=== PATIENT | female | born 1950 | race Caucasian/White ===

== ENCOUNTER 2024-06-09 19:41 | Observation (INO) | payer OTHER, SELFPAY ==
[2024-06-09 19:56] VITALS: BP 144/66; PULSE 72; RESP 18; TEMP 37.7; O2SAT 100; BMI 25.8
--- NOTE | 2024-06-09 20:54 | CRLHL7_ITS ---
For Patients: As a result of the Century Cures Act, medical imaging exams and procedure reports are released immediately into your electronic medical record. You may view this report before your referring provider. If you have questions, please contact your health care provider. INDICATION: Epigastric abdominal pain. TECHNIQUE: CT abdomen and pelvis acquired with 83 cc Omnipaque 370 IV contrast. COMPARISON: None. FINDINGS: Lower chest: Left lower lobe calcified granulomas. Bibasilar atelectasis/scarring. Liver: Right hepatic lobe cyst measuring 3.6 cm. Gallbladder and bile ducts: Cholecystectomy. Mild intrahepatic biliary dilatation in addition to prominence of the common bile duct which demonstrates mild wall enhancement. No radiopaque stones appreciated. Pancreas: Mild peripancreatic fat stranding along the pancreatic head. No peripancreatic fluid collection. No pancreatic ductal dilatation. Spleen: Unremarkable. Adrenal glands: Unremarkable. Kidneys: Left parapelvic cysts. No hydronephrosis or hydroureter. No obstructing urinary calculi. GI tract: No bowel obstruction. No suspicious bowel wall thickening. Moderate colonic stool burden. No CT evidence of acute appendicitis. Vasculature: No abdominal aortic aneurysm. Grossly patent vasculature. Lymph nodes: No suspicious lymphadenopathy. Peritoneum/Abdominal Wall: No ascites or pneumoperitoneum. No acute abdominal wall abnormality. Pelvis: Normal bladder. No suspicious adnexal mass. Bones: No acute abnormality. Nonspecific right iliac sclerotic lesion measuring 0.6 cm. IMPRESSION: 1. Mild peripancreatic fat stranding along the pancreatic head may reflect sequelae of pancreatitis. No peripancreatic fluid collection. 2. Mild common bile duct wall enhancement with mild intrahepatic biliary ductal dilatation, nonspecific, may reflect sequelae of ascending biliary tract infection in the appropriate clinical context. No radiopaque stones appreciated. 3. Nonspecific subcentimeter right iliac sclerotic lesion may reflect a bone island. Comparison with prior imaging recommended, if available, to assess for interval change. Otherwise, follow up examination could be pursued in 1 year to assess for stability. Please note that all CT scans at this facility use dose modulation, iterative reconstruction, and/or weight-based dosing when appropriate to reduce radiation dose to as low as reasonably achievable. Dictated by Mayito Morris MD @ 06/09/2024 10:37:05 PM (Electronically Signed)
--- NOTE | 2024-06-09 21:00 | ED_ITS ---
HPI - Abdominal Pain General Date Seen: 06/09/24 Chief Complaint: Abdominal Pain Stated Complaint: Tightness in abdomen/back Time Seen by Provider: 06/09/24 20:50 Source: patient Mode of arrival: ambulatory Limitations: no limitations History of Present Illness HPI narrative: patient is a 74-year-old female presenting to the emergency department for epigastric pain. She states the pain started yesterday feels like a band around her abdomen squeezing her. She denies having symptoms like this before. Symptoms persisted into today so she came to be evaluated. has not been eating or drinking much because she states it makes the pain worse. States the pain radiated to her back. Has had previous hysterectomy, appendectomy, cholecystectomy. Had a bowel movement yesterday and is normal for her to go 1-2 days without a bowel movement. She states it was normal. Has never had a bowel obstruction before. She has not noticed any abdominal distention. Has never had issues with pancreatitis before she states. No history of alcohol drinking. No known liver disease. Not aware of any sick contacts. Has had some nausea but no vomiting. Has not had any dysuria or diarrhea. Denies chest pain, shortness of breath, headaches, dizziness, weakness, numbness. Related Data Home Medications ?Medication ?Instructions ?Recorded ?Confirmed aspirin 81 mg capsule 81 mg PO DAILY 06/09/24 06/09/24 atorvastatin 10 mg tablet 10 mg PO DAILY 06/09/24 06/09/24 lisinopril 20 1 tab PO DAILY 06/09/24 06/09/24 mg-hydrochlorothiazide 12.5 mg tablet psyllium husk 0.4 gram capsule 0.4 g PO DAILY 06/09/24 06/09/24 (Daily Fiber) Allergies Allergy/AdvReac Type Severity Reaction Status Date / Time latex Allergy Severe Verified 06/09/24 22:18 Penicillins Allergy Severe Verified 06/09/24 22:18 Review of Systems Status of ROS Reports: 10 or more systems reviewed and unremarkable except as noted in History and below [facility] Social History Smoking Status: Former smoker Do you use any of these nicotine containing products: None How often do you have a drink containing alcohol: never AUDIT-C Alcohol total score: 0 Non-prescribed substance use: denies use Exam Narrative: Exam Narrative: Const: Well-nourished, Well-developed, in mild distress Eyes: PERRL, no conjunctival injection, and symmetrical lids HENT: Atraumatic external nose and ears. Moist mucous membranes. Neck: Symmetric, trachea midline, No thyromegaly. CVS: RRR, No murmurs or gallops. Peripheral pulses 2+ and equal in all extremities RESP: Unlabored respiratory effort. Clear to auscultation bilaterally. GI: mild epigastric tenderness,Nondistended, No rebound or guarding. MSK:Extremities w/o deformity, Normal Active ROM Skin: Warm, Dry. No rashes or lesions. Neuro: Normal Muscle tone, No focal neurological deficits. Psych: Awake, Alert, & Oriented x3. Appropriate mood and affect. Const: Vital Signs, click to edit/add: Vital Signs - 24 hr 06/09/24 19:56 06/09/24 21:15 06/09/24 22:40 Temperature 99.9 F H 97.7 F Pulse Rate [Right Pulse Oximeter] 72 67 69 Respiratory Rate 18 16 16 Blood Pressure [Ri t Upper Arm] 144/66 H 149/76 H 136/55 L Pulse Oximetry 100 94 99 Oxygen Delivery Me thod Room Air Room Air Room Air Course Vital Signs Vital signs: Initial Vital Signs Temperature 99.9 F H 06/09/24 19:56 Temperature Source Temporal Artery Scan 06/09/24 19:56 Pulse Rate 72 06/09/24 19:56 Pulse Rhythm Regular 06/09/24 19:56 Pulse Strength 3+ Normal 06/09/24 19:56 Respiratory Rate 18 06/09/24 19:56 Blood Pressure 144/66 H 06/09/24 19:56 Blood Pressure Mean 92 06/09/24 19:56 Blood Pressure Position Sitting 06/09/24 19:56 Pulse Oximetry 100 06/09/24 19:56 Oxygen Delivery Method Room Air 06/09/24 19:56 Vital Signs Temperature 99.9 F H 06/09/24 19:56 Pulse Rate 72 06/09/24 19:56 Respiratory Rate 18 06/09/24 19:56 Blood Pressure 144/66 H 06/09/24 19:56 Pulse Oximetry 100 06/09/24 19:56 Oxygen Delivery Method Room Air 06/09/24 19:56 Temperature 97.7 F 06/09/24 22:40 Pulse Rate 69 06/09/24 22:40 Respiratory Rate 16 06/09/24 22:40 Blood Pressure 136/55 L 06/09/24 22:40 Pulse Oximetry 99 06/09/24 22:40 Oxygen Delivery Method Room Air 06/09/24 22:40 Medications Administered Medications: Discontinued Medications Generic Name Dose Route Start Last Admin Trade Name Beatris PRN Reason Stop Dose Admin Morphine Sulfate 4 mg 06/09/24 20:54 06/09/24 21:16 Morphine 4 Mg/Ml Inj IVP 06/09/24 20:55 4 mg ONCE ONE Administration MDM - Abdominal Pain MDM Narrative Medical decision making narrative: Patient is a 74-year-old female presenting to the emergency department for abdominal pain. Differential at this time includes small-bowel obstruction, pancreatitis, gastroenteritis, liver disease. Unlikely to be stump appendicitis or diverticulitis based on the location. She is otherwise stable and I do not notice a pulsatile mass. AAA rupture seems unlikely at this time. This could be an uncommon presentation of ACS so will order an EKG and troponin. Morphine given for pain. Is not requesting anything for nausea at this time. Will order a CT scan of IV contrast of the abdomen and pelvis, BMP, CBC, lipase, COVID/flu / RSV, urinalysis. morphine given for pain patient's lab work returned showing no concerning abnormalities. Lipase within normal limits. AST and ALT are very mildly elevated. Bilirubin within normal limits. Urinalysis shows no signs of a UTI. EKG and troponin shows no acute concerning abnormalities considering length of symptoms I do not believe repeat troponin is necessary. CT scan of the abdomen pelvis shows Some mild peripancreatic fat stranding that could be consistent with pancreatitis. Also show some mild common bile duct walk can spend a mild intrahepatic biliary duct dilation. This duct dilation can be seen post cholecystectomy which she has had. She is showing no obvious signs of infection and has non concerning LFTs at this time. Despite the normal lipase she does have clinical symptoms consistent with pancreatitis along with CT evidence of pancreatitis. Do this I do feel comfortable diagnoses her pancreatitis. I will spoke to her about admission under observation versus discharge. I explained management both ways at this time she prefers admission. I spoke to the hospitalist, Dr. Matthew, who accepted her for admission. I asked him if he would want a ultrasound of the right upper quadrant prior to admission but he is comfortable without this being performed at this time Lab Data Labs: Lab Results 06/09/24 06/09/24 06/09/24 Range/Units 20:55 21:07 21:18 WBC 10.70 (4.50-11.00) K/uL RBC 4.50 (4.00-5.20) m/uL Hgb 13.8 (12.0-16.0) gm/dL Hct 40.7 (33.0-51.0) % MCV 90 (80-100) fL MCH 31 (26-34) pg MCHC 34 (32-36) gm/dL RDW Coeff of Ariel 12.5 (11.5-15.5) % Plt Count 168 (140-440) K/uL Neut % (Auto) 79.3 H (42.0-72.0) % Lymph % (Auto) 12.0 L (20-44) % [place] % (Auto) 8.3 (0.0-11.0) % Eos % (Auto) 0.0 (0.0-7.0) % Baso % (Auto) 0.1 (0.0-3.0) % Neut # (Auto) 8.50 H (1.7-7.0) K/uL Lymph # (Auto) 1.30 (0.90-2.90) K/uL [place] # (Auto) 0.90 (0.00-0.90) K/UL Eos # (Auto) 0.00 (0.00-0.50) K/uL Baso # (Auto) 0.01 (0.00-0.30) K/uL Abs Immat Gran (auto) 0.03 (0.00-0.30) K/uL Imm/Tot Granulo (auto) 0.3 % Sodium 138 (135-149) mmol/L Potassium 3.6 (3.6-5.1) mmol/L Chloride 104 (96-114) mmol/L Carbon Dioxide 24 (20-32) mmol/L Anion Gap 10 (7-15) mEq/L BUN 24 (7-30) mg/dL Creatinine 0.7 (0.5-1.5) mg/dL Estimated Creat Clear 49.03 Estimated GFR 90 ml/min Glucose 130 H (60-115) mg/dL Calcium 10.0 (8.4-10.6) mg/dL Total Bilirubin (0.1-1.5) mg/dL Direct Bilirubin (0.0-0.5) mg/dL AST (12-35) U/L ALT (4-35) U/L Alkaline Phosphatase (40-150) U/L Total Protein (6.0-8.3) g/dL Albumin (3.3-5.0) g/dL Lipase 52 (23-300) U/L Urine Color Yellow (Yellow) Urine Appearance Clear (Clear) Urine pH 7.0 (5.0-8.5) Ur Specific [place] 1.015 (1.000-1.030) Urine Protein Trace A (Negative) Urine Glucose (UA) Negative (Negative) Urine Ketones 4+ A (Negative) Urine Blood Negative (Negative) Urine Nitrite Negative (Negative) Urine Bilirubin 1+ A (Negative) Urine Urobilinogen 1.0 (0.2-1.0) Ur Leukocyte Esterase Trace A (Negative) Urine RBC 0-2 (0-2) Urine WBC 0-2 (0-5) Ur Squamous Epith Cells None (None-Few) Urine Bacteria None (None) SARS-CoV-2 (PCR) (Negative) Influenza Type A (PCR) (Negative) Influenza Type B (PCR) (Negative) RSV (PCR) (Negative) POC Troponin I 0.00 L (0.01-0.04) ng/ml 06/09/24 06/09/24 Range/Units 21:26 22:01 WBC (4.50-11.00) K/uL RBC (4.00-5.20) m/uL Hgb (12.0-16.0) gm/dL Hct (33.0-51.0) % MCV (80-100) fL MCH (26-34) pg MCHC (32-36) gm/dL RDW Coeff of Ariel (11.5-15.5) % Plt Count (140-440) K/uL Neut % (Auto) (42.0-72.0) % Lymph % (Auto) (20-44) % [place] % (Auto) (0.0-11.0) % Eos % (Auto) (0.0-7.0) % Baso % (Auto) (0.0-3.0) % Neut # (Auto) (1.7-7.0) K/uL Lymph # (Auto) (0.90-2.90) K/uL [place] # (Auto) (0.00-0.90) K/UL Eos # (Auto) (0.00-0.50) K/uL Baso # (Auto) (0.00-0.30) K/uL Abs Immat Gran (auto) (0.00-0.30) K/uL Imm/Tot Granulo (auto) % Sodium (135-149) mmol/L Potassium (3.6-5.1) mmol/L Chloride (96-114) mmol/L Carbon Dioxide (20-32) mmol/L Anion Gap (7-15) mEq/L BUN (7-30) mg/dL Creatinine (0.5-1.5) mg/dL Estimated Creat Clear Estimated GFR ml/min Glucose (60-115) mg/dL Calcium (8.4-10.6) mg/dL Total Bilirubin 1.1 (0.1-1.5) mg/dL Direct Bilirubin 0.3 (0.0-0.5) mg/dL AST 42 H (12-35) U/L ALT 36 H (4-35) U/L Alkaline Phosphatase 70 (40-150) U/L Total Protein 7.3 (6.0-8.3) g/dL Albumin 4.7 (3.3-5.0) g/dL Lipase (23-300) U/L Urine Color (Yellow) Urine Appearance (Clear) Urine pH (5.0-8.5) Ur Specific [place] (1.000-1.030) Urine Protein (Negative) Urine Glucose (UA) (Negative) Urine Ketones (Negative) Urine Blood (Negative) Urine Nitrite (Negative) Urine Bilirubin (Negative) Urine Urobilinogen (0.2-1.0) Ur Leukocyte Esterase (Negative) Urine RBC (0-2) Urine WBC (0-5) Ur Squamous Epith Cells (None-Few) Urine Bacteria (None) SARS-CoV-2 (PCR) Negative SARS-CoV-2 (Negative) Influenza Type A (PCR) Negative PCR FLU A (Negative) Influenza Type B (PCR) Negative PCR FLU B (Negative) RSV (PCR) Negative PCR RSV (Negative) POC Troponin I (0.01-0.04) ng/ml Imaging Data CT scan abdomen and pelvis: Attestation: I have reviewed the pertinent imaging results. Radiologist's impression: 1. Mild peripancreatic fat stranding along the pancreatic head may reflect sequelae of pancreatitis. No peripancreatic fluid collection. 2. Mild common bile duct wall enhancement with mild intrahepatic biliary ductal dilatation, nonspecific, may reflect sequelae of ascending biliary tract infection in the appropriate clinical context. No radiopaque stones appreciated. 3. Nonspecific subcentimeter right iliac sclerotic lesion may reflect a bone island. Comparison with prior imaging recommended, if available, to assess for interval change. Otherwise, follow up examination could be pursued in 1 year to assess for stability. Please note that all CT scans at this facility use dose modulation, iterative reconstruction, and/or weight-based dosing when appropriate to reduce radiation dose to as low as reasonably achievable. Dictated by Mayito Morris MD @ 06/09/2024 10:37:05 PM ECG Data Attestation: I personally reviewed and interpreted this ECG as follows: Prior ECG tracings: not available for review Interpretation: normal sinus rhythm with rate 62 beats per minute, normal intervals, normal axis, no ST or T-wave abnormalities. Discharge Plan Discharge Clinical Impression: Pancreatitis Patient Disposition: Admitted As Observation Condition: Stable
[2024-06-09 21:15] VITALS: BP 149/76; PULSE 67; RESP 16; O2SAT 94
[2024-06-09] MEDS: MORPHINE 4 MG/ML INJ IVP (21:16)
[2024-06-09 21:21] LABS: Appearance Urine Clear (Clear); Bilirubin Urine 1+ (Negative); Blood Urine Negative (Negative); Color Urine Yellow (Yellow); Glucose Urine Negative (Negative); Ketones Urine 4+ (Negative); Leukocyte Esterase Urine Trace (Negative); Nitrite Urine Negative (Negative); Protein Urine Trace (Negative); Specific Gravity Urine 1.015 (1.000-1.030)
[2024-06-09 21:23] LABS: Basophils Absolute Auto 0.01 K/uL (0.00-0.30); Basophils Percent Auto 0.1 % (0.0-3.0); Hematocrit 40.7 % (33.0-51.0); Hemoglobin* 13.8 gm/dL (12.0-16.0); Immature Granulocytes Abs Auto 0.03 K/uL (0.00-0.30); Immature Granulocytes Pct Auto 0.3 %; Mean Corpuscular HGB Conc 34 gm/dL (32-36); Mean Corpuscular Hemoglobin 31 pg (26-34); Mean Corpuscular Volume 90 fL (80-100); Monocytes Percent Auto 8.3 % (0.0-11.0); Neutrophils Percent Auto 79.3 % (42.0-72.0); Platelet Count* 168 K/uL (140-440); RDW Coefficient of Variation % 12.5 % (11.5-15.5)
[2024-06-09 21:30] LABS: Slide Review Reflex No
[2024-06-09 21:31] LABS: RBC Urine 0-2 (0-2); WBC Urine 0-2 (0-5)
[2024-06-09 21:47] LABS: Chloride* 104 mmol/L (96-114)
[2024-06-09 21:48] LABS: Potassium* 3.6 mmol/L (3.6-5.1); Sodium* 138 mmol/L (135-149)
[2024-06-09 21:50] LABS: Blood Urea Nitrogen* 24 mg/dL (7-30); Creatinine* 0.7 mg/dL (0.5-1.5); Est. Creatinine Clearance* 49.03; Estimated Glomerular Filt Rate 90 ml/min
[2024-06-09 21:51] LABS: Anion Gap 10 mEq/L (7-15); Carbon Dioxide* 24 mmol/L (20-32); Glucose* 130 mg/dL (60-115); Lipase* 52 U/L (23-300)
[2024-06-09 22:06] LABS: PCR FLU A Negative PCR FLU A (Negative); PCR FLU B Negative PCR FLU B (Negative); PCR RSV Negative PCR RSV (Negative); SARS PCR* Negative SARS-CoV-2 (Negative)
[2024-06-09 22:25] LABS: Albumin* 4.7 g/dL (3.3-5.0)
[2024-06-09 22:28] LABS: Alanine Aminotransferase* 36 U/L (4-35); Alkaline Phosphatase* 70 U/L (40-150); Aspartate Amino Transferase* 42 U/L (12-35); Bilirubin Direct* 0.3 mg/dL (0.0-0.5); Bilirubin Total* 1.1 mg/dL (0.1-1.5); Total Protein* 7.3 g/dL (6.0-8.3)
[2024-06-09 22:40] VITALS: BP 136/55; PULSE 69; RESP 16; TEMP 36.5; O2SAT 99
[2024-06-09 23:32] VITALS: BP 145/57; PULSE 67; RESP 16; TEMP 36.8; O2SAT 98; BMI 27.1
--- NOTE | 2024-06-09 23:48 | P.IMHP_ITS ---
Assessment and Plan Assessment and plan (1) Pancreatitis: Problem comment: Clinically and radiographically appears to have pancreatitis. Normal lipase. No obvious cause for this based on initial evaluation. Conservative management. Consult surgery. Status: Acute Plan Patient is admitted to the hospital for ongoing evaluation management of pancreatitis. IV fluids, IV pain medicine and antiemetics. Start with clear liquid diet and advanced to low-fat diet as tolerated. Surgical consult. Further testing depending on clinical course. Total Time Spent Total Time Spent: Total time spent today is 65 minutes in coordination of care, reviewing outside records, discussing with patient and and other providers her clinical d iagnosis, diagnostic uncertainty and plan of care. Hospitalist- H&P: HPI History of Present Illness Date Seen: 06/09/24 Chief complaint: Tightness in abdomen/back Narrative: Sindy Chavez is a 74 year old female with hypertension, hyperlipidemia, diet-controlled diabetes and history of cholecystectomy admit to the hospital with a 1 and half day history of epigastric abdominal pain radiating around both sides of the abdomen to the back. This began yesterday morning after breakfast. It has been constant since yesterday. She has had persistent nausea and has been eating some but not vomiting. No bowel or bladder problems. No fever. No previous episodes similar to this. She did have a cholecystectomy many years ago and at the same time also had a schwannoma removed from her spine. No problems since then. She rarely drinks alcohol, once a month at most. She does not smoke. She has elevated cholesterol but not elevated triglycerides. January 2024 triglycerides were 53. Review of Systems Narrative: She reports generally feeling well except for the onset of these symptoms yesterday. Review of systems otherwise unremarkable [facility] Medical History (Updated 06/09/24 @ 23:59 by Jimenez Matthew MD) History of benign schwannoma ?Z86.018 - Personal history of other benign neoplasm (ICD-10) Hyperlipidemia ?E78.5 - Hyperlipidemia, unspecified (ICD-10) Hypertension ?I10 - Essential (primary) hypertension (ICD-10) Diabetes mellitus ?E11.9 - Type 2 diabetes mellitus without complications (ICD-10) Surgical History (Updated 06/09/24 @ 23:54 by Jimenez Matthew MD) History of cholecystectomy ?Z90.49 - Acquired absence of other specified parts of digestive tract (ICD- 10) Family History (Updated 06/09/24 @ 23:56 by Jimenez Matthew MD) Father Diabetes High blood pressure Brother Coronary artery disease Diabetes Sister Diabetes Mother Uterine cancer Social History (Updated 06/09/24 @ 23:56 by Jimenez Matthew MD) Narrative: She lives in [place] with her Georgi. Georgi is healthcare power of real estate attorney. Code status is full. She does not smoke. She drinks alcohol less than once a month. What is your current living situation?: I presently have a place to live Problems where you live: no known problems Problems where you live details: n/a In the past 12 months, utilities in danger of being shut off: no In past 12 months, lack of transportation kept you from medical appts, meetings, work, or getting things needed for daily living: no In the past 12 mos, have been you worried that your food would run out before you had money to buy more?: never true In the past 12 mos, the food you bought just didn't last and you didn't have money to buy more?: never true Smoking Status: Former smoker Do you use any of these nicotine containing products: None How often do you have a drink containing alcohol: never AUDIT-C Alcohol total score: 0 Non-prescribed substance use: denies use How often does anyone, including family, friends and others, physically hurt you : never How often does anyone, including family, friends and others, insult or talk down to you: never How often does anyone, including family, friends and others, threaten you with harm: never How often does anyone, including family, friends and others, scream or curse at you: never Meds Home Medications and Allergies Home Medications ?Medication ?Instructions ?Recorded ?Confirmed ?Type aspirin 81 mg capsule 81 mg PO DAILY 06/09/24 06/09/24 History atorvastatin 10 mg tablet 10 mg PO DAILY 06/09/24 06/09/24 History lisinopril 20 1 tab PO DAILY 06/09/24 06/09/24 History mg-hydrochlorothiazide 12.5 mg tablet psyllium husk 0.4 gram capsule 0.4 g PO DAILY 06/09/24 06/09/24 History (Daily Fiber) Allergies Allergy/AdvReac Type Severity Reaction Status Date / Time latex Allergy Severe Verified 06/09/24 22:18 Penicillins Allergy Severe Verified 06/09/24 22:18 Exam Narrative: Exam Narrative: She is alert and appears in no distress. She gives her own history and is oriented to her circumstances. Eyes normal. Oropharynx small airway but otherwise normal. Neck is supple without mass or adenopathy. Respirations are clear to auscultation. Cardiovascular: S1, S2, regular rate and rhythm. No murmur gallop or rub. Abdomen: Bowel sounds active. Abdomen is soft. She has mild epigastric tenderness extends across the upper abdomen. No mass. No peritonitis. Minimal low abdominal tenderness. External genitalia normal. Extremities without edema. She has good peripheral pulses. She moves all 4 extremities well. No rash. Const: Vital Signs, click to edit/add: Vital Signs - 24 hr 06/09/24 19:56 06/09/24 21:15 06/09/24 22:40 Temperature 99.9 F H 97.7 F Pulse Rate [Pulse Oximeter] Pulse Rate [Right Pulse Oximeter] 72 67 69 Respiratory Rate 18 16 16 Blood Pressure [Ri ght Arm] Blood Pressure [Ri ght Upper Arm] 144/66 H 149/76 H 136/55 L Pulse Oximetry 100 94 99 Oxygen Delivery Me thod Room Air Room Air Room Air 06/09/24 23:32 Temperature 98.3 F Pulse Rate [Pulse Oximeter] 67 Pulse Rate [Right Pulse Oximeter] Respiratory Rate 16 Blood Pressure [Ri ght Arm] 145/57 H Blood Pressure [Ri ght Upper Arm] Pulse Oximetry 98 Oxygen Delivery Me thod Room Air Documenting provider has reviewed patient's vital signs: yes Hospitalist - H&P: Result Labs Labs: Short CBC 06/09/24 Range/Units 21:18 WBC 10.70 (4.50-11.00) K/uL Hgb 13.8 (12.0-16.0) gm/dL Hct 40.7 (33.0-51.0) % Plt Count 168 (140-440) K/uL BMP 06/09/24 21:18 Sodium 138 Potassium 3.6 Chloride 104 Carbon Dioxide 24 BUN 24 Creatinine 0.7 Glucose 130 H Calcium 10.0 Liver Function 06/09/24 Range/Units 22:01 Total Bilirubin 1.1 (0.1-1.5) mg/dL Direct Bilirubin 0.3 (0.0-0.5) mg/dL AST 42 H (12-35) U/L ALT 36 H (4-35) U/L Alkaline Phosphatase 70 (40-150) U/L Albumin 4.7 (3.3-5.0) g/dL Urine //25 Range/Units 21:07 Urine Color Yellow (Yellow) Urine Appearance Clear (Clear) Urine pH 7.0 (5.0-8.5) Ur Specific [place] 1.015 (1.000-1.030) Urine Protein Trace A (Negative) Urine Glucose (UA) Negative (Negative) ECG Attestation: I personally reviewed and interpreted this ECG as follows: (Normal sinus rhythm with a rate of 62. Minimal nonspecific ST-T changes.) Imaging CT scan - abdomen: Radiologist's impression: INDICATION: Epigastric abdominal pain. TECHNIQUE: CT abdomen and pelvis acquired with 83 cc Omnipaque 370 IV contrast. COMPARISON: None. FINDINGS: Lower chest: Left lower lobe calcified granulomas. Bibasilar atelectasis/scarring. Liver: Right hepatic lobe cyst measuring 3.6 cm. Gallbladder and bile ducts: Cholecystectomy. Mild intrahepatic biliary dilatation in addition to prominence of the common bile duct which demonstrates mild wall enhancement. No radiopaque stones appreciated. Pancreas: Mild peripancreatic fat stranding along the pancreatic head. No peripancreatic fluid collection. No pancreatic ductal dilatation. Spleen: Unremarkable. Adrenal glands: Unremarkable. Kidneys: Left parapelvic cysts. No hydronephrosis or hydroureter. No obstructing urinary calculi. GI tract: No bowel obstruction. No suspicious bowel wall thickening. Moderate colonic stool burden. No CT evidence of acute appendicitis. Vasculature: No abdominal aortic aneurysm. Grossly patent vasculature. Lymph nodes: No suspicious lymphadenopathy. Peritoneum/Abdominal Wall: No ascites or pneumoperitoneum. No acute abdominal wall abnormality. Pelvis: Normal bladder. No suspicious adnexal mass. Bones: No acute abnormality. Nonspecific right iliac sclerotic lesion measuring 0.6 cm. IMPRESSION: 1. Mild peripancreatic fat stranding along the pancreatic head may reflect sequelae of pancreatitis. No peripancreatic fluid collection. 2. Mild common bile duct wall enhancement with mild intrahepatic biliary ductal dilatation, nonspecific, may reflect sequelae of ascending biliary tract infection in the appropriate clinical context. No radiopaque stones appreciated. 3. Nonspecific subcentimeter right iliac sclerotic lesion may reflect a bone island. Comparison with prior imaging recommended, if available, to assess for interval change. Otherwise, follow up examination could be pursued in 1 year to assess for stability.
[2024-06-10] VITALS (7 sets, daily range): BP systolic 115–138; BP diastolic 49–60; PULSE 65–76; RESP 16–20; TEMP 36.7–37.3; O2SAT 93–98
[2024-06-10] MEDS: LACTATED RINGERS 500 ML 500 ML IV (01:17)
[2024-06-10] MEDS: LACTATED RINGERS 1000 ML 1,000 ML 75 ML IV ×2 (01:23→15:54)
[2024-06-10 06:35] LABS: Basophils Absolute Auto 0.01 K/uL (0.00-0.30); Basophils Percent Auto 0.1 % (0.0-3.0); Hematocrit 36.8 % (33.0-51.0); Hemoglobin* 12.2 gm/dL (12.0-16.0); Immature Granulocytes Pct Auto 1.1 %; Lymphocytes Percent Auto 15.8 % (20-44); Mean Corpuscular HGB Conc 33 gm/dL (32-36); Mean Corpuscular Hemoglobin 31 pg (26-34); Mean Corpuscular Volume 93 fL (80-100); Monocytes Percent Auto 8.1 % (0.0-11.0); Neutrophils Percent Auto 74.9 % (42.0-72.0); Platelet Count* 164 K/uL (140-440); RDW Coefficient of Variation % 12.7 % (11.5-15.5); Red Blood Count 3.95 m/uL (4.00-5.20)
[2024-06-10 06:43] LABS: Slide Review Reflex No
[2024-06-10 06:53] LABS: Albumin* 3.8 g/dL (3.3-5.0)
[2024-06-10 06:54] LABS: Chloride* 104 mmol/L (96-114); Potassium* 3.9 mmol/L (3.6-5.1); Sodium* 139 mmol/L (135-149)
[2024-06-10 06:56] LABS: Alanine Aminotransferase* 214 U/L (4-35); Alkaline Phosphatase* 82 U/L (40-150); Anion Gap 6 mEq/L (7-15); Aspartate Amino Transferase* 181 U/L (12-35); Blood Urea Nitrogen* 19 mg/dL (7-30); Carbon Dioxide* 29 mmol/L (20-32); Creatinine* 0.8 mg/dL (0.5-1.5); Est. Creatinine Clearance* 49.03; Estimated Glomerular Filt Rate 77 ml/min; Lipase* 188 U/L (23-300); Total Protein* 6.1 g/dL (6.0-8.3)
[2024-06-10 06:57] LABS: Calcium* 9.3 mg/dL (8.4-10.6); Cholesterol* 136 mg/dL (90-199); Glucose* 200 mg/dL (60-115); HDL Cholesterol* 49 mg/dL (>=50); LDL Cholesterol Calculated 77 mg/dL (<100); Triglycerides* 52 mg/dL (40-149)
--- NOTE | 2024-06-10 07:59 | PC.NURSE ---
Patient pleasant, alert and oriented. Ambulates independently in room. Reports having abdominal discomfort that extends around to her back.
--- NOTE | 2024-06-10 08:14 | P.IMPN_ITS ---
Assessment and Plan Assessment and plan (1) Pancreatitis: Problem comment: Clinically and radiographically appears to have pancreatitis. Normal lipase. No obvious cause for this, but could be a passed stone per discussion w/ Dr Albarran. Continue conservative management w/ IVF + pain meds. On clear liquid diet, if will progress her diet tomorrow Consulted surgery. could be a passed stone, no need for MRCP as the patient has been improving per discussion w/ Dr Albarran. Will give IV PPI and check for improvement. Status: Acute (2) Elevated liver enzymes: Problem comment: AST/ALT increased from 40s-50s to 200. Patient has been improving so much. The discussed with Dr Albarran, who thinks that currently patient does not need MRCP even though her common bile duct did see is dilated as long as the patient is improving. Status: Acute (3) History of cholecystectomy: Problem comment: Removed at the time of surgical removal of schwannoma. Status: Acute (4) Diabetes mellitus: Problem comment: Diet controlled. Last hemoglobin a1c was 5.9 01/20/2024 Status: Acute Total Time Spent Total Time Spent: Today I spent 50 minutes seeing the patient, reviewing Expanse and EPIC notes/diagnostics, discussing the care plan with our care time that includes social work, PT/OT, pharmacy, RT, custodial and documenting my impressions and plan in the medical record. Subjective Date Seen: 06/10/24 Interval history: No events overnight. Patient seen and examined on bedside, she states that she feels much better pain 2/10. She did not need any pain medication overnight she only got 1 morphine does at the ED on admission. Not nauseous, was able to tolerate clear liquid diet. Patient has history of constipation she takes a laxative her last bowel movement was 2 days ago. No blood no history of melena. No history of gastritis or peptic ulcer disease, never done upper endoscopy. Infrequent use of NSAIDs but she says that she takes an sometime for her osteoarthritis and she takes them on an empty stomach, I suggested that she take them on a full stomach. Her Exam Narrative: Exam Narrative: Physical exam GENERAL: Comfortable, no acute distress. HEAD AND NECK: Atraumatic, normocephalic CARDIOVASCULAR: RRR. Normal S1, S2. No murmurs. RESPIRATORY: Clear to auscultation B/L. Good air entry B/L. No wheezes or rhonchi. GASTROINTESTINAL: Not distended, mildly tender to palpation upper and middle abdomen. NEUROLOGY: Alert, awake, oriented X 3. Normal speech. PSYCH: Normal mood, normal affect. Const: Vital Signs, click to edit/add: Vital Signs - 24 hr 06/09/24 19:56 06/09/24 21:15 06/09/24 22:40 Temperature 99.9 F H 97.7 F Pulse Rate [Pulse Oximeter] Pulse Rate [Right Pulse Oximeter] 72 67 69 Respiratory Rate 18 16 16 Blood Pressure [Ri ght Arm] Blood Pressure [Ri ght Upper Arm] 144/66 H 149/76 H 136/55 L Pulse Oximetry 100 94 99 Oxygen Delivery Me thod Room Air Room Air Room Air 06/09/24 23:32 06/10/24 03:00 Temperature 98.3 F 98.6 F Pulse Rate [Pulse Oximeter] 67 65 Pulse Rate [Right Pulse Oximeter] Respiratory Rate 16 18 Blood Pressure [Ri ght Arm] 145/57 H 115/54 L Blood Pressure [Ri ght Upper Arm] Pulse Oximetry 98 94 Oxygen Delivery Me thod Room Air Room Air Labs Labs: Laboratory Results - last 24 hr 06/09/24 06/09/24 06/09/24 20:55 21:07 21:18 WBC 10.70 RBC 4.50 Hgb 13.8 Hct 40.7 MCV 90 MCH 31 MCHC 34 RDW Coeff of Ariel 12.5 Plt Count 168 Neut % (Auto) 79.3 H Lymph % (Auto) 12.0 L [place] % (Auto) 8.3 Eos % (Auto) 0.0 Baso % (Auto) 0.1 Neut # (Auto) 8.50 H Lymph # (Auto) 1.30 [place] # (Auto) 0.90 Eos # (Auto) 0.00 Baso # (Auto) 0.01 Abs Immat Gran (auto) 0.03 Imm/Tot Granulo (auto) 0.3 Sodium 138 Potassium 3.6 Chloride 104 Carbon Dioxide 24 Anion Gap 10 BUN 24 Creatinine 0.7 Estimated Creat Clear 49.03 Estimated GFR 90 Glucose 130 H Calcium 10.0 Total Bilirubin Direct Bilirubin AST ALT Alkaline Phosphatase Total Protein Albumin Triglycerides Cholesterol LDL Cholesterol, Calc HDL Cholesterol Lipase 52 Urine Color Yellow Urine Appearance Clear Urine pH 7.0 Ur Specific [place] 1.015 Urine Protein Trace A Urine Glucose (UA) Negative Urine Ketones 4+ A Urine Blood Negative Urine Nitrite Negative Urine Bilirubin 1+ A Urine Urobilinogen 1.0 Ur Leukocyte Esterase Trace A Urine RBC 0-2 Urine WBC 0-2 Ur Squamous Epith Cells None Urine Bacteria None SARS-CoV-2 (PCR) Influenza Type A (PCR) Influenza Type B (PCR) RSV (PCR) POC Troponin I 0.00 L 06/09/24 06/09/24 06/10/24 21:26 22:01 06:03 WBC 8.80 RBC 3.95 L Hgb 12.2 Hct 36.8 MCV 93 MCH 31 MCHC 33 RDW Coeff of Ariel 12.7 Plt Count 164 Neut % (Auto) 74.9 H Lymph % (Auto) 15.8 L [place] % (Auto) 8.1 Eos % (Auto) 0.0 Baso % (Auto) 0.1 Neut # (Auto) 6.60 Lymph # (Auto) 1.40 [place] # (Auto) 0.70 Eos # (Auto) 0.00 Baso # (Auto) 0.01 Abs Immat Gran (auto) 0.10 Imm/Tot Granulo (auto) 1.1 Sodium 139 Potassium 3.9 Chloride 104 Carbon Dioxide 29 Anion Gap 6 L BUN 19 Creatinine 0.8 Estimated Creat Clear 49.03 Estimated GFR 77 Glucose 200 H Calcium 9.3 Total Bilirubin 1.1 1.0 Direct Bilirubin 0.3 AST 42 H 181 H ALT 36 H 214 H Alkaline Phosphatase 70 82 Total Protein 7.3 6.1 Albumin 4.7 3.8 Triglycerides 52 Cholesterol 136 LDL Cholesterol, Calc 77 HDL Cholesterol 49 L Lipase 188 Urine Color Urine Appearance Urine pH Ur Specific [place] Urine Protein Urine Glucose (UA) Urine Ketones Urine Blood Urine Nitrite Urine Bilirubin Urine Urobilinogen Ur Leukocyte Esterase Urine RBC Urine WBC Ur Squamous Epith Cells Urine Bacteria SARS-CoV-2 (PCR) Negative SARS-CoV-2 Influenza Type A (PCR) Negative PCR FLU A Influenza Type B (PCR) Negative PCR FLU B RSV (PCR) Negative PCR RSV POC Troponin I
[2024-06-10] MEDS: PANTOPRAZOLE SODIUM 40 MG INJ IVP (08:49)
[2024-06-10] MEDS: lisinopriL 20 MG TABLET PO (08:49)
[2024-06-10] MEDS: ATORVASTATIN CALCIUM 10 MG TABLET PO (08:50)
[2024-06-10] MEDS: ASPIRIN 81 MG TABLET EC PO (08:51)
[2024-06-10] MEDS: SODIUM CHLORIDE 0.9 % (FLUSH) 10 ML SYRINGE 5 ML IVF (08:52)
[2024-06-10] MEDS: PSYLLIUM HUSK (WITH SUGAR) 12 GM PACKET PO (08:52)
[2024-06-10] MEDS: hydroCHLOROthiazide 12.5 MG CAPSULE PO (09:24)
--- NOTE | 2024-06-10 11:04 | PM.GSCN ---
History of Present Illness Consult details Date Seen: 06/10/24 Consult date: 06/10/24 Narrative: Patient presented to the emergency department last night with severe abdominal pain radiating to her back. The pain started on Friday, but then continued to get worse throughout the week. She has never had pain like this before. Since being admitted last night her pain has significantly improved. She denies any associated vomiting, but does report nausea. No diarrhea. No fevers at home. Her surgical history is positive for removal of a schwannoma, cholecystectomy and appendectomy. She has a well-healed upper midline incision. Denies any daily alcohol use, NSAIDs and nonsmoker. She does take a daily aspirin. No history of ulcer disease. Review of Systems Status of ROS: Reports: 10 or more systems reviewed and unremarkable except as noted in History and below [facility] Medical History (Updated 06/10/24 @ 11:02 by Cherry Cruz MD) History of benign schwannoma ?Z86.018 - Personal history of other benign neoplasm (ICD-10) Hyperlipidemia ?E78.5 - Hyperlipidemia, unspecified (ICD-10) Hypertension ?I10 - Essential (primary) hypertension (ICD-10) Diabetes mellitus ?E11.9 - Type 2 diabetes mellitus without complications (ICD-10) Surgical History (Updated 06/10/24 @ 10:57 by Cherry Cruz MD) History of cholecystectomy ?Z90.49 - Acquired absence of other specified parts of digestive tract (ICD-10) Family History (Updated 06/09/24 @ 23:56 by Jimenez Matthew MD) Father Diabetes High blood pressure Brother Coronary artery disease Diabetes Sister Diabetes Mother Uterine cancer Social History (Updated 06/09/24 @ 23:56 by Jimenez Matthew MD) Narrative: She lives in [place] with her Georgi. Georgi is healthcare power of [employer] transactions attorney. Code status is full. She does not smoke. She drinks alcohol less than once a month. What is your current living situation?: I presently have a place to live Problems where you live: no known problems Problems where you live details: n/a In the past 12 months, utilities in danger of being shut off: no In past 12 months, lack of transportation kept you from medical appts, meetings, work, or getting things needed for daily living: no In the past 12 mos, have been you worried that your food would run out before you had money to buy more?: never true In the past 12 mos, the food you bought just didn't last and you didn't have money to buy more?: never true Smoking Status: Former smoker Do you use any of these nicotine containing products: None How often do you have a drink containing alcohol: never AUDIT-C Alcohol total score: 0 Non-prescribed substance use: denies use How often does anyone, including family, friends and others, physically hurt you: never How often does anyone, including family, friends and others, insult or talk down to you: never How often does anyone, including family, friends and others, threaten you with harm: never How often does anyone, including family, friends and others, scream or curse at you: never Meds Home Medications and Allergies Home Medications ?Medication ?Instructions ?Recorded ?Confirmed ?Type aspirin 81 mg capsule 81 mg PO DAILY 06/09/24 06/09/24 History atorvastatin 10 mg tablet 10 mg PO DAILY 06/09/24 06/09/24 History lisinopril 20 1 tab PO DAILY 06/09/24 06/09/24 History mg-hydrochlorothiazide 12.5 mg tablet psyllium husk 0.4 gram capsule 0.4 g PO DAILY 06/09/24 06/09/24 History (Daily Fiber) Allergies Allergy/AdvReac Type Severity Reaction Status Date / Time latex Allergy Severe Verified 06/09/24 22:18 Penicillins Allergy Severe Verified 06/09/24 22:18 codeine Allergy Unverified 06/10/24 05:47 Exam Narrative: Exam Narrative: General: Alert and oriented, no acute distress Respiratory: Equal breath rise bilaterally, maintained on room air CV: Well perfused Abdomen: Soft, mild tenderness the epigastric with deep palpation, no guarding or rebound. Nondistended. Const: Vital Signs, click to edit/add: Vital Signs - 24 hr 06/09/24 19:56 06/09/24 21:15 06/09/24 22:40 Temperature 99.9 F H 97.7 F Pulse Rate [Pulse Oximeter] Pulse Rate [Right Pulse Oximeter] 72 67 69 Respiratory Rate 18 16 16 Blood Pressure [Ri ght Arm] Blood Pressure [Ri ght Upper Arm] 144/66 H 149/76 H 136/55 L Pulse Oximetry 100 94 99 Oxygen Delivery Me thod Room Air Room Air Room Air 06/09/24 23:32 06/10/24 03:00 06/10/24 07:00 Temperature 98.3 F 98.6 F 98.1 F Pulse Rate [Pulse Oximeter] 67 65 66 Pulse Rate [Right Pulse Oximeter] Respiratory Rate 16 18 16 Blood Pressure [Ri ght Arm] 145/57 H 115/54 L 135/60 Blood Pressure [Ri ght Upper Arm] Pulse Oximetry 98 94 93 Oxygen Delivery Me thod Room Air Room Air Room Air Results Labs Labs: Abnormal lab results 06/09/24 06/09/24 06/09/24 Range/Units 20:55 21:07 21:18 RBC (4.00-5.20) m/uL Neut % (Auto) 79.3 H (42.0-72.0) % Lymph % (Auto) 12.0 L (20-44) % Neut # (Auto) 8.50 H (1.7-7.0) K/uL Anion Gap (7-15) mEq/L Glucose 130 H (60-115) mg/dL AST (12-35) U/L ALT (4-35) U/L HDL Cholesterol (>=50) mg/dL Urine Protein Trace A (Negative) Urine Ketones 4+ A (Negative) Urine Bilirubin 1+ A (Negative) Ur Leukocyte Esterase Trace A (Negative) POC Troponin I 0.00 L (0.01-0.04) ng/ml 06/09/24 06/10/24 Range/Units 22:01 06:03 RBC 3.95 L (4.00-5.20) m/uL Neut % (Auto) 74.9 H (42.0-72.0) % Lymph % (Auto) 15.8 L (20-44) % Neut # (Auto) (1.7-7.0) K/uL Anion Gap 6 L (7-15) mEq/L Glucose 200 H (60-115) mg/dL AST 42 H 181 H (12-35) U/L ALT 36 H 214 H (4-35) U/L HDL Cholesterol 49 L (>=50) mg/dL Urine Protein (Negative) Urine Ketones (Negative) Urine Bilirubin (Negative) Ur Leukocyte Esterase (Negative) POC Troponin I (0.01-0.04) ng/ml Diabetes panel 06/09/24 06/09/24 06/10/24 Range/Units 21:18 22:01 06:03 Sodium 138 139 (135-149) mmol/L Potassium 3.6 3.9 (3.6-5.1) mmol/L Chloride 104 104 (96-114) mmol/L Carbon Dioxide 24 29 (20-32) mmol/L BUN 24 19 (7-30) mg/dL Creatinine 0.7 0.8 (0.5-1.5) mg/dL Glucose 130 H 200 H (60-115) mg/dL Calcium 10.0 9.3 (8.4-10.6) mg/dL AST 42 H 181 H (12-35) U/L ALT 36 H 214 H (4-35) U/L Alkaline Phosphatase 70 82 (40-150) U/L Total Protein 7.3 6.1 (6.0-8.3) g/dL Albumin 4.7 3.8 (3.3-5.0) g/dL Triglycerides 52 (40-149) mg/dL HDL Cholesterol 49 L (>=50) mg/dL Calcium panel 06/09/24 06/09/24 06/10/24 Range/Units 21:18 22:01 06:03 Calcium 10.0 9.3 (8.4-10.6) mg/dL Albumin 4.7 3.8 (3.3-5.0) g/dL Pituitary panel 06/09/24 06/10/24 Range/Units 21:18 06:03 Sodium 138 139 (135-149) mmol/L Potassium 3.6 3.9 (3.6-5.1) mmol/L Chloride 104 104 (96-114) mmol/L Carbon Dioxide 24 29 (20-32) mmol/L BUN 24 19 (7-30) mg/dL Creatinine 0.7 0.8 (0.5-1.5) mg/dL Glucose 130 H 200 H (60-115) mg/dL Calcium 10.0 9.3 (8.4-10.6) mg/dL Adrenal panel 06/09/24 06/09/24 06/10/24 Range/Units 21:18 22:01 06:03 Sodium 138 139 (135-149) mmol/L Potassium 3.6 3.9 (3.6-5.1) mmol/L Chloride 104 104 (96-114) mmol/L Carbon Dioxide 24 29 (20-32) mmol/L BUN 24 19 (7-30) mg/dL Creatinine 0.7 0.8 (0.5-1.5) mg/dL Glucose 130 H 200 H (60-115) mg/dL Calcium 10.0 9.3 (8.4-10.6) mg/dL Total Bilirubin 1.1 1.0 (0.1-1.5) mg/dL AST 42 H 181 H (12-35) U/L ALT 36 H 214 H (4-35) U/L Alkaline Phosphatase 70 82 (40-150) U/L Total Protein 7.3 6.1 (6.0-8.3) g/dL Albumin 4.7 3.8 (3.3-5.0) g/dL All other labs normal. Imaging Abdomen CT scan report/results: report reviewed and image reviewed Progress Note:A&P Assessment and plan (1) Pancreatitis: Status: Acute Assessment and Plan: Patient presents with 3 days epigastric abdominal pain radiating to the back. Workup was obtained in the emergency department. Labs demonstrate no leukocytosis. Lipase within normal limits (52--188). Mild elevation in transaminases with bilirubin within normal limits and no elevation in alkaline phosphatase. Patient does have a history of a cholecystectomy. CT scan does show inflammation of the pancreatic head and biliary system. There was mild dilation of the common bile duct, measuring 1.5 cm. No obvious stones on imaging. Patient could have passed a stone, although no current concern for choledocholithiasis with patient reporting clinical improvement in symptoms and no evidence of biliary obstruction on labs. Recommend she continue with a clear liquid diet today. As long as symptoms continue to improve and labs trend towards normal okay to start advancing diet tomorrow. If patient has worsening liver panel or increasing abdominal pain would consider further workup with an MRCP.
[2024-06-10] MEDS: FEXOFENADINE 180 MG TABLET PO (13:06)
--- NOTE | 2024-06-10 14:45 | PC.NURSE ---
Patient pleasant and cooperative. A&Ox4. SBA. VSS. Denies pain. Tolerating clear liquid diet, will attempt full liquid at dinner time. At 0900 patient was found to have hives on chest, abdomen, sides, back of neck and back of knees; bright red, warm to touch, patient denied itching or burning. Sensitive linen provided. Provider aware, see orders.
[2024-06-10] MEDS: ENOXAPARIN 40 MG/0.4 ML INJ SUBCUT (16:01)
[2024-06-10] MEDS: diphenhydrAMINE 25 MG CAPSULE PO (21:48)
[2024-06-10] MEDS: TRIAMCINOLONE ACETONIDE CREAM 0.1 % 1 APPLIC TOPICAL (21:49)
[2024-06-11 03:00] VITALS: BP 131/53; PULSE 73; RESP 17; TEMP 37.3; O2SAT 94
[2024-06-11] MEDS: LACTATED RINGERS 1000 ML 1,000 ML 75 ML IV (04:02)
--- NOTE | 2024-06-11 05:08 | PC.NURSE ---
Addendum entered by Anne Malik RN 06/11/24 06:21: Given PRN Benadryl and scheduled triamcinolone cream for hives. Hives vary in size. A few dime sized areas on legs and large blotchy areas that cover skin extending around torso and behind knees. She had no further complaints of itching or discomofort. Original Note: Shift note ([id number]): Patient pleasant, alert and oriented. Ambulates independently in room. Rated pain 2/10, describing her discomfort?felt like she got punched in the stomach. Tolerating full liquid diet.?
[2024-06-11 06:56] LABS: Hemoglobin* 11.3 gm/dL (12.0-16.0); Mean Corpuscular HGB Conc 33 gm/dL (32-36); Mean Corpuscular Hemoglobin 31 pg (26-34); Mean Corpuscular Volume 93 fL (80-100); Platelet Count* 150 K/uL (140-440); Red Blood Count 3.66 m/uL (4.00-5.20); White Blood Count* 11.33 K/uL (4.50-11.00)
[2024-06-11 07:12] LABS: Albumin* 3.4 g/dL (3.3-5.0); Chloride* 105 mmol/L (96-114)
[2024-06-11 07:13] LABS: Potassium* 3.4 mmol/L (3.6-5.1); Sodium* 138 mmol/L (135-149)
[2024-06-11 07:15] LABS: Alanine Aminotransferase* 140 U/L (4-35); Alkaline Phosphatase* 92 U/L (40-150); Anion Gap 5 mEq/L (7-15); Aspartate Amino Transferase* 63 U/L (12-35); Bilirubin Total* 1.1 mg/dL (0.1-1.5); Blood Urea Nitrogen* 11 mg/dL (7-30); Carbon Dioxide* 28 mmol/L (20-32); Creatinine* 0.6 mg/dL (0.5-1.5); Est. Creatinine Clearance* 49.03; Estimated Glomerular Filt Rate 94 ml/min; Glucose* 104 mg/dL (60-115); Total Protein* 5.8 g/dL (6.0-8.3)
[2024-06-11 07:16] LABS: Magnesium* 1.9 mg/dL (1.5-2.6)
[2024-06-11 07:36] LABS: Slide Review Reflex No
[2024-06-11 07:51] VITALS: PULSE 70; RESP 18
[2024-06-11 07:54] VITALS: BP 121/52; PULSE 70; RESP 18; TEMP 36.7; O2SAT 91
[2024-06-11] MEDS: hydroCHLOROthiazide 12.5 MG CAPSULE PO (08:46)
[2024-06-11] MEDS: ASPIRIN 81 MG TABLET EC PO (08:46)
[2024-06-11] MEDS: ATORVASTATIN CALCIUM 10 MG TABLET PO (08:46)
[2024-06-11] MEDS: FEXOFENADINE 180 MG TABLET PO (08:46)
[2024-06-11] MEDS: lisinopriL 20 MG TABLET PO (08:47)
[2024-06-11] MEDS: PSYLLIUM HUSK (WITH SUGAR) 12 GM PACKET PO (08:47)
[2024-06-11] MEDS: SODIUM CHLORIDE 0.9 % (FLUSH) 10 ML SYRINGE 5 ML IVF (08:48)
[2024-06-11] MEDS: OMEPRAZOLE 20 MG CAPSULE DR PO (10:25)
--- NOTE | 2024-06-11 10:27 | PM.DS1 ---
DS: Providers Provider Date Seen: 06/11/24 Date of admission: 06/09/24 23:15 Primary care physician: Not a Local Provider Admitting Clinician: Jimenez Matthew MD Consults: 06/09/24 23:46 Consult to Physician [CONS] Routine Comment: Consulting Provider: Virgen Albarran Has provider been notified: No Attending Physician on discharge: Jimenez Matthew MD DS: Diagnosis Discharge Diagnosis (1) Pancreatitis: Status: Acute Problem details: Clinically and radiographically appears to have pancreatitis. Normal lipase. No obvious cause for this, but could be a passed stone per discussion w/ Dr Albarran. Continue conservative management w/ IVF + pain meds. Advancing her diet today June 11 as patient has been tolerating full fluid diet. Consulted surgery. could be a passed stone, no need for MRCP as the patient has been improving per discussion w/ Dr Albarran. IV PPI given and pt states she improved. Liver enz pumped up on the 2nd day of admission but then downtrended. (2) Elevated liver enzymes: Status: Acute Problem details: AST/ALT down trending Patient has been improving so much. The discussed with Dr Albarran, who thinks that currently patient does not need MRCP even though her common bile duct did see is dilated as long as the patient is improving. (3) History of cholecystectomy: Status: Acute Problem details: Removed at the time of surgical removal of schwannoma. (4) Diabetes mellitus: Status: Acute Problem details: Diet controlled. Last hemoglobin a1c was 5.9 01/20/2024 (5) History of gastroesophageal reflux (GERD): Status: Chronic Problem details: -Hx of GERD and prescribed medication use in the past. -Aspirin was stopped due to concerns of stomach irritation, especially that pt was not sure when to stop it and it has been years since the orthopedic doctor prescribed it after a knee replacement surgery. -No hx of stroke or heart disease. -Counseled her to take pain killers on a full stomach. -patient states that pantoprazole improved her pain so will give her a course of omeprazole for a month. DS: Summary Hospital Course Hospital Course: Pt presented w/ abdominal pain. Clinically and radiographically appears to have pancreatitis. Normal lipase. Initiated conservative management w/ IVF + pain meds and pt improved. We advanced her diet & patient has been tolerating full fluid diet. Sx consulted. No obvious cause for this, but could be a passed stone. No need for MRCP as the patient has been improving per discussion w/ Dr Albarran. Also, Liver enz pumped up on the 2nd day of admission but then downtrended. IV PPI given and pt states she improved, she has hx of GERD. Aspirin was stopped due to concerns of stomach irritation, especially that pt was not sure when to stop it and it has been years since the orthopedic doctor prescribed it after a knee replacement surgery. No hx of stroke or heart disease. Counseled her to take pain killers on a full stomach.F/up w/ PCP. Status at Discharge Functional status at discharge: independent ambulation Overall status at discharge: patient is back to baseline Time Spent with Patient Time attestation: Total time spent providing and/or coordinating discharge services: 50 min Exam Narrative: Exam Narrative: Physical exam GENERAL: Comfortable, no acute distress. HEAD AND NECK: Atraumatic, normocephalic CARDIOVASCULAR: RRR. Normal S1, S2. No murmurs. RESPIRATORY: Clear to auscultation B/L. Good air entry B/L. No wheezes or rhonchi. GASTROINTESTINAL: Not distended, not tender to palpation. NEUROLOGY: Alert, awake, oriented X 3. Normal speech. PSYCH: Normal mood, normal affect. Const: Vital Signs, click to edit/add: Vital Signs - 24 hr 06/10/24 11:00 06/10/24 14:34 06/10/24 15:15 Temperature 99.1 F 98.1 F 98.4 F Pulse Rate [Pulse Oximeter] 68 73 Respiratory Rate 16 18 Blood Pressure [Ri ght Arm] 138/55 L 131/49 L Pulse Oximetry 98 96 Oxygen Delivery Me thod Room Air Room Air 06/10/24 19:00 06/10/24 23:00 06/11/24 03:00 Temperature 98.2 F 98.7 F 99.1 F Pulse Rate [Pulse Oximeter] 69 76 73 Respiratory Rate 20 16 17 Blood Pressure [Ri ght Arm] 125/57 L 132/53 L 131/53 L Pulse Oximetry 98 93 94 Oxygen Delivery Me thod Room Air Room Air Nasal Cannula 06/11/24 07:51 06/11/24 07:54 Temperature 98.0 F Pulse Rate [Pulse Oximeter] 70 70 Respiratory Rate 18 18 Blood Pressure [Ri ght Arm] 121/52 L Pulse Oximetry 91 Oxygen Delivery Me thod Room Air DS: Data Data Completed and Pending Labs on day of discharge: Labs from last 24 hours 06/11/24 06:26 WBC 11.33 H RBC 3.66 L Hgb 11.3 L Hct 34.0 MCV 93 MCH 31 MCHC 33 Plt Count 150 Sodium 138 Potassium 3.4 L Chloride 105 Carbon Dioxide 28 Anion Gap 5 L BUN 11 Creatinine 0.6 Estimated Creat Clear 49.03 Estimated GFR 94 Glucose 104 Calcium 9.0 Magnesium 1.9 Total Bilirubin 1.1 AST 63 H ALT 140 H Alkaline Phosphatase 92 Total Protein 5.8 L Albumin 3.4 Preliminary micro results at discharge 06/09/24 21:07 Urine Culture - Preliminary Urine,Clean Catch < 10,000 COL/ML MIXED GRAM POSITIVE MENA ISOLATED NO FURTHER WORKUP Discharge Plan Discharge Disposition: Home, Self-Care Date of Admission: 06/09/24 23:15 Attending Provider on Discharge: Cherry Cruz Consulting Providers: Virgen Albarran Primary Care Provider: Provider,Not a Local Condition: Stable Anticipated Discharge Date/Time: 06/11/24 16:00 Discharge Medications: New sennosides-docusate sodium [Stool Softener-Laxative] 8.6-50 mg Tablet 1 - 2 tab PO BID PRN30 Days Qty: 60 0RF triamcinolone acetonide 0.1 % Cream 1 applic topical BID 14 Days Qty: 20 0RF omeprazole 20 mg Capsule,Delayed Release(Dr/Ec) 20 mg PO DAILY@0700 30 Days Qty: 30 0RF fexofenadine 180 mg Tablet 180 mg PO DAILY 14 Days Qty: 14 0RF diphenhydramine HCl [Banophen] 25 mg Capsule 25 mg PO Q6H PRN30 Days Qty: 30 0RF Continued lisinopril-hydrochlorothiazide 20-12.5 mg tablet 1 tab PO DAILY atorvastatin 10 mg tablet 10 mg PO DAILY psyllium husk [Daily Fiber] 0.4 gram capsule 0.4 g PO DAILY Discontinued aspirin 81 mg capsule 81 mg PO DAILY Discharge Orders: Discharge Order (Routine); Ordered 06/11/24 Ordered By: Cherry Cruz Patient Education: Diphenhydramine (By mouth), Nystatin/Triamcinolone (On the skin), Omeprazole (By mouth), Fexofenadine (By mouth), Senna (By mouth), Pancreatitis (IP) Additional Instructions: -Aspirin was stopped due to concerns of stomach irritation, especially that you were not sure when to stop it and it has been years since the orthopedic doctor prescribed it after knee replacement surgery. -please take pain killers on a full stomach. -please do not hesitate to visit an emergency room or urgent clinic if he think that her symptoms came back. -if symptoms come back and a diagnosis of pancreatitis is the most probable one, we recommend doing an MRI at that time (MRCP). Activity Level: No Restrictions and Activity as Tolerated Discharge Diet: Diabetic Follow Up Appointments: Provider,Not a Local [Primary Care Provider] - Forms: [email or web address] Info Instructions
[2024-06-11 11:44] VITALS: BP 126/60; PULSE 70; RESP 18; TEMP 37.2; O2SAT 98
--- NOTE | 2024-06-11 13:58 | PC.NURSE ---
Discharged: VSS, denies pain, tolerating intake and activity well. Patient belongings and discharge forms signed. Education reviewed, patient had no further questions at this time. Patient ambulated off unit independently. Discharged to home with .
== END 2024-06-11 13:14 | disposition home or self-care (01) ==
LOC: ED 23:08 → MEDSURG 23:15
PROVIDERS: Student in an Organized Health Care Education/Training Program; Admitting Provider Family Medicine; Emergency Provider Student in an Organized Health Care Education/Training Program; Visit Provider Family Medicine
DX: K85.90 Acute pancreatitis without necrosis or infection, unspecified (principal); R74.8 Abnormal levels of other serum enzymes; Z87.19 Personal history of other diseases of the digestive system; Z90.49 Acquired absence of other specified parts of digestive tract; E11.9 Type 2 diabetes mellitus without complications; E78.5 Hyperlipidemia, unspecified; I10 Essential (primary) hypertension; R10.13 Epigastric pain; M54.9 Dorsalgia, unspecified; Z87.891 Personal history of nicotine dependence
CPT/HCPCS: 36415; 74177; 80048; 80053; 80061; 80076; 81001; 83690; 83735; 84484; 85025; 85027; 87086; 87631; 93005; 96361; 96372; 96374; 96375; 99284; 99285; A9270; G0378; J1650; J2270; J2470; J7120; Q9967